=== PATIENT | female | born 1945 | race Caucasian/White ===

== ENCOUNTER 2016-11-01 12:20 | Emergency (ER) | payer MEDICARE ==
[~2016-11-01] VITALS: Ht 157.5 cm; Wt 70.5 kg
[~2016-11-01 12:20] MED LIST: ATEN25TA7 PO; COZ100 PO; OXY40 PO; REG10 PO; SYN.088T PO; VIC5 PO
[2016-11-01 12:25] VITALS: BP 179/67; PULSE 71; RESP 16; O2SAT 99
[2016-11-01] MEDS ORDERED: AMT50T PO (12:30)
--- NOTE | 2016-11-01 13:08 | ED.REPORT ---
HPI-General Illness Date of Service Nov 01, 2016 ED Provider: Nabil Blackburn MD 70 year old female with a history of severe aortic stenosis, pre-diabetic, and HTN presents to the ER accompanied by a female senior sales assistant complaining of a 5- minute episode of nausea and shortness of breath while having coffee following her Lidia class around 11:30-11:45 today. Associated symptoms include dizziness , confusion, and residual "fogginess", headache, and shaking since the episode. Her senior sales assistant reports that patient initially "presented like a TIA". She states that the patient had a blank stare, was "looking through her", and was unable to identify her. This episode lasted about 1 minute. Patient denies chest pain , changes in speech, difficulty swallowing, numbness/tingling, blurred vision, and alcohol consumption today. 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 She is very active, attends multiple exercise classes daily, but denies any history of similar symptoms with exertion. Upon interviewing the patient's daughter, she reports multiple episodes of similar in the past. Nursing Notes Stated Complaint: SHORTNESS OF BREATH/SHAKING Chief Complaint: General Complaint Nursing Notes Reviewed: Yes Allergies: Coded Allergies: No Known Allergies (Verified Allergy, Unknown, 11/01/16) Scheduled Amitriptyline (Amitriptyline) 50 Mg Tab 50 MG PO HS Atenolol-Expunged Drug, Do Not Renew! (Atenolol-Expunged Drug, Do Not Renew!) 25 Mg Tablet 12.5 MG PO DAILY Hydrocod/APAP-Expunged, Do Not Renew! (Vicodin-Expunged Drug, Do Not Renew) 1 Tab Tab 1 TAB PO PRN Levothyroxine-Expunged Drug, Do Not Renew! (Synthroid-Expunged Drug, Do Not Renew!) 88 Mcg Tablet 88 MCG PO DAILYAC 0.088 MG = 88 MCG Losartan-Expunged Drug, Do Not Renew! (Losartan-Expunged Drug, Do Not Renew!) 100 Mg Tablet 50 MG PO DAILY MetoCLOpramide-Expunged Drug, Do Not Renew! (MetoCLOpramide-Expunged Drug, Do Not Renew!) 10 Mg Tablet 10 MG PO ACHS oxyCODONE-Expunged, Do Not Renew! (OxyCONTIN-Expunged, Do Not Renew!) 40 Mg Tab.sr.12h 40 MG PO TID DO NOT CHEW OR CRUSH General Time Seen by MD: 12:48 Chief Complaint Other (Shortness of Breath) Hx Obtained From: Patient Arrived By: Walk-in Sudden in Onset?: Yes Onset Occurred: Just prior to arrival Associated with: Reports: Dizziness, Headache, Nausea, Denies: Chest pain Pertinent Negative: Pt denies other symptoms Context Related History: Reports Diabetes mellitus Similar Sx Previous: Yes Past Medical History Past Medical History Severe aortic stenosis Pre-diabetic Reports: Hypertension Past Surgical History Reports: Hysterectomy Smoking History Former Smoker Social History Other Social History: Good social support Ambulatory Status Independent Review of Systems Full Review of Systems Constitutional: Reports: Weakness - generalized, Denies: Chills, Fever Respiratory: Reports: Shortness of breath Cardiovascular: Denies: Chest pain GI: Reports: Nausea Neurologic: Reports: Change LOC, Confusion, Dizziness, Headache, Shaking, Denies: Focal weakness, Numbness, Slurred speech, Syncope Complete sys rev & neg: except as marked. Physical Exam Vital Signs Vital Signs Date Time Temp Pulse Resp B/P Pulse Ox O2 Delivery O2 Flow Rate FiO2 11/01/16 15:42 70 18 129/67 98 Room Air 11/01/16 12:25 36.4 71 16 179/67 99 Room Air Initial VS: Reviewed Head / Eyes: Atraumatic, Normocephalic Neck: Supple, Non-tender, Full range of motion Abdomen / GI: Soft, Non-tender, No guarding, No rebound, No distention Extremities: Vascular intact, Neuro intact, No swelling, No tenderness Skin: Warm, Dry, No cyanosis Neurologic: Alert, Oriented, Nonfocal General/Constitutional: Awake, Alert, Well developed, Well nourished Respiratory / Chest: Breath sounds NL, No respiratory distress, No rales, No rhonchi, No wheezing Cardiovascular: Heart rate NL, Regular rhythm, Heart sounds NL, Cap refill not delayed, Peripheral circulation NL Neurologic: Oriented X3, Speech NL, No motor deficits, No sensory deficits, CN II - XII intact NIH Stroke Scale Level of Consciousness: Alert and responsive (0) Ask Month & Age: Both questions right (0) Open/Close Eyes/Hand Tree And Shrub Technician: Performs both tasks (0) Horizontal EO Movements: None (0) Visual Meza: No visual loss (0) Facial Palsy: Normal symmetry (0) Right Arm Motor Drift (10s): No drift 10 sec (0) Left Arm Motor Drift (10s): No drift 10 sec (0) Right Leg Motor Drift (5s): No drift 5 sec (0) Left Leg Motor Drift (5s): No drift 5 sec (0) Limb Ataxia FNF/Heel-Cavanaugh: No ataxia (0) Sensation (Arms/Legs/Face): No sensory loss (0) Language Aphasia: No aphasia, normal (0) Dysarthria: No dysarthria, normal (0) Extinction/Inattention: No exctinct/inattent (0) NIHSS Score: 0 Time NIHSS Performed: 13:15 Date NIHSS Performed: Nov 01, 2016 Interpretation & Diagnostics Lab Results Interpretation Result Diagram: 11/01/16 1400 11/01/16 1400 Test 11/01/16 12:30 11/01/16 14:00 Urine Color Straw (YELLOW) Urine Appearance Hazy (CLEAR,HAZY) Urine pH 5.5 (5.0-8.0) Urine Specific Hudson 1.015 (1.003-1.035) Urine Protein Negativemg/dL (NEG,TRACE) Urine Glucose (UA) Negativemg/dL (NEGATIVE) Urine Ketones Negativemg/dL (NEGATIVE) Urine Occult Blood Negative (NEGATIVE) Urine Nitrite Negative (NEGATIVE) Urine Bilirubin Negative (NEGATIVE) Urine Urobilinogen Normalmg/dL (NORMAL) Urine Leukocyte Esterase Negative (NEGATIVE) Urine RBC 0-2/hpf (0-2) Urine WBC 0-5/hpf (0-5) Urine Epithelial Cells Occasional/hpf (NONE-MOD) Urine Crystals None seen (NONE SEEN) Urine Bacteria Few/hpf (NONE-FEW) Urine Hyaline Casts None/lpf (NONE) Urine Granular Casts None seen (NONE SEEN) Urine Waxy Casts None seen (NONE SEEN) Urine Red Blood Cell Casts None seen (NONE SEEN) Urine White Blood Cell Casts None seen (NONE SEEN) Urine Mucus None seen (None Seen) Urine Trichomonas None seen (NONE SEEN) Urine Yeast None (NONE SEEN) Urinalysis Comment None Urine Culture Reflexed Not indicated White Blood Count 7.1th/mm3 (3.8-10.1) Red Blood Count 4.72mil/mm3 (3.90-5.20) Hemoglobin 11.6g/dL (12.0-15.6) Hematocrit 36.3% (35.0-46.0) Mean Corpuscular Volume 76.9fL (81-100) Mean Corpuscular Hemoglobin 24.6pg (27.0-35.0) Mean Corpuscular Hemoglobin Concent 32.0% (32.0-37.0) Red Cell Distribution Width 14.7% (12.3-15.4) Platelet Count 131bil/L (150-400) Neutrophils (%) (Auto) 84.5% (40-74) Lymphocytes (%) (Auto) 9.5% (14-46) Monocytes (%) (Auto) 4.5% (4-12) Eosinophils (%) (Auto) 1.1% (0-5) Basophils (%) (Auto) 0.1% (0-3) Sodium Level 127mEq/L (134-144) Potassium Level 4.6mEq/L (3.5-5.2) Chloride Level 92mEq/L (97-108) Carbon Dioxide Level 21mmol/L (18-29) Blood Urea Nitrogen 22mg/dL (8-27) Creatinine 0.87mg/dL (0.57-1.00) Estimat Glomerular Filtration Rate 92mL/min (>59) Glucose Level 126mg/dL (60-99) Calcium Level 8.9mg/dL (8.5-10.1) Magnesium Level 1.9mg/dL (1.6-2.6) Total Bilirubin 0.3mg/dL (0.0-1.2) Aspartate Amino Transf (AST/SGOT) 25U/L (0-50) Alanine Aminotransferase (ALT/SGPT) 19U/L (0-32) Alkaline Phosphatase 65U/L (25-165) Troponin T < 0.010ug/L (0.0-0.011) Total Protein 6.9g/dL (6.4-8.4) Albumin 4.5g/dL (3.4-5.0) ECG Interpretation ECG Interpretation: Early repolarization, confirmed with cardiology. No STEMI. Time: 13:22 Interpreted by: ED physician Normal ECG Interpretation: Normal sinus rhythm X-Ray Chest Interpretation Chest Xray Interpretation: IMPRESSION: No acute cardiopulmonary disease. Dictated by: Tito Zamora RRA Interpreted: Demi Stringer MD on 11/01/2016 at 14:26 Transcribed by: MARTY on 11/01/2016 at 14:27 View: AP & lat Interpretation / Wet Read by: Interpret - Radiologist CT Head Interpretation IMPRESSION: 1. No acute intracranial disease process. 2. Opacification of the right mastoid air cells. Please correlate with direct physical finding to differentiate serous fluid from an inflammatory process. Dictated by: Deim Stringer MD, PhD on 11/01/2016 at 14:18 Approved by: Demi tSringer MD, PhD on 11/01/2016 at 14:21 Study: Head CT no contrast Interpretation / Wet Read by: Interpret - Radiologist Re-Eval/Medical Decision Med Decision/Clinical Course 70-year-old female history of SVT and near syncopal events presenting with near syncopal event. She was at lunch and started to feel lightheaded and slightly confused. She denies any chest pain. She may be some associated dyspnea. Vital signs are stable on arrival. She is mostly back to her baseline though still feels slightly foggy. Troponins are negative. EKG with early repolarization confirmed with cardiology. CT brain no acute pathology. I recommended admission for near syncopal event which may have been as a result of TIA versus cardiac versus arrhythmia versus other. Patient declines admission and decided to go home. Source of Hx: Old records Time of Eval: 14:59 Re-Evaluation/Progress Note: Patient is now accompanied by her daughter who is at bedside. Discussed lab and radiology results and recommendation for admission. Patient is amenable to the plan. All other questions addressed. Code Status: Full Code Time of Eval: 15:31 Re-Evaluation/Progress Note: Patient has changed her mind and would like to be discharged. Return precautions given. All other questions addressed. Consultation : Referral / Consult Name: Leonard Mancilla MD Consulted With: Cardiology Call Returned at: 13:21 Maintenance Trainer: Will see patient Counseled Regarding: Diagnosis, Lab results, Need for follow-up, When/why to return to ED Discharge & Departure Primary Impression: Near syncope Disposition: Home Discharge Condition All VS Reviewed: Yes Condition: Stable Patient Instructions: Ischemic Stroke (DC), Transient Ischemic Attack (DC) Additional Instructions: Call your primary care provider to arrange a follow-up appointment for tomorrow. Return to the ER if you develop worsening symptoms, weakness/numbness/tingling, confusion, facial droop, chest pain, shortness of breath, or any other concerning symptoms. Referrals: Jeevan Coyne MD (PCP) Natalia Attestation Portions of this note were transcribed by Dima Hammond. I, Dr. Blackburn, personally performed the history, physical exam and medical decision-making; I reviewed and confirmed the accuracy of the information in the transcribed note. Signed by: Natalia Pierre, 11/01/2016 - 15:35 copies to: Jeevan Coyne MD, Ben M MD Nov 01, 2016 13:08 DIMA HAMMOND Nov 01, 2016 13:15
[2016-11-01 13:12] LABS: APPEARANCE,URINE HAZY (CLEAR,HAZY); COLOR,URINE STRAW (YELLOW); OCCULT BLOOD,URINE NEGATIVE (NEGATIVE); PH,URINE 5.5 (5.0-8.0); UROBILINOGEN,URINE NORMAL (NORMAL)
[2016-11-01 14:13] LABS: BASOPHILS % (AUTO) 0.1 % (0-3); EOSINOPHILS % (AUTO) 1.1 % (0-5); MONOCYTES % (AUTO) 4.5 % (4-12); Mean Corpuscular Hemoglobin 24.6 pg (27.0-35.0); Mean Corpuscular Volume 76.9 fL (81-100); NEUTROPHILS % (AUTO) 84.5 % (40-74); Platelet Count 131 bil/L (150-400)
--- NOTE | 2016-11-01 14:23 | DRSVH ---
PROCEDURE: CT BRAIN WITHOUT CONTRAST ([id number]) INDICATIONS: syncope TECHNIQUE: Noncontrast 4.5 mm thick angled axial sections acquired from the foramen magnum to the vertex, with c oronal reformats. COMPARISON: [facility], MR, BRAIN (IAC) W&WO CONTRAST, 12/09/2012, 7:42. FINDINGS: Image quality: Excellent. CSF spaces: Basal cisterns are patent. No extra-axial fluid collections. The ventricles are symmet arthur in size and shape. Brain: No intracranial bleeds or masses. There is cerebral volume loss for age, with resultant vent ricular and sulcal prominence. There are periventricular and deep white matter chronic small vessel ischemic changes. Punctate calcification noted in the right occipital lobe to represent sequela prior granulomatous disease. There is intracranial internal carotid artery atherosclerosis. Skull and face: Calvarium and visualized facial bones appear intact, without suspicious lesions. Sinuses: Visualized sinuses are clear. Right mastoid air cells are opacified. Left mastoid air cells are clear. IMPRESSION: 1. No acute intracranial disease process. 2. Opacification of the right mastoid air cells. Please correlate with direct physical finding to dif ferentiate serous fluid from an inflammatory process. Dictated by: Demi Stringer MD, PhD on 11/01/2016 at 14:18 Approved by: Demi Stringer MD, PhD on 11/01/2016 at 14:21
--- NOTE | 2016-11-01 14:27 | DRSVH ---
PROCEDURE: X-RAY CHEST, TWO VIEWS ([id number]) INDICATIONS: shortness of breath/weakness TECHNIQUE: 2 views of the chest were acquired. COMPARISON: [facility], CHEST 2VW, 11/24/2013, 3:16 PM. FINDINGS: Surgical changes and devices: None. Lungs and pleura: No pleural effusions or pneumothorax. Lungs are clear. Mediastinum: Mediastinal contours are normal. Heart size is normal. Bones and chest wall: No suspicious bony abnormalities. Soft tissues appear unremarkable. IMPRESSION: No acute cardiopulmonary disease. Dictated by: Tito Zamora [facility] Interpreted: Demi Stringer MD on 11/01/2016 at 14:26 Transcribed by: MARTY on 11/01/2016 at 14:27 Approved by: Demi Stringer MD, PhD on 11/01/2016 at 17:02
[2016-11-01 14:39] LABS: TROPONIN T < 0.010 ug/L (0.0-0.011)
[2016-11-01 14:48] LABS: Magnesium 1.9 mg/dL (1.6-2.6)
[2016-11-01 15:42] VITALS: BP 129/67; PULSE 70; RESP 18; O2SAT 98
== END 2016-11-01 15:42 | disposition home or self-care (01) ==
LOC: SED 12:20
DX: R55 Syncope and collapse (principal); R51 Headache; I10 Essential (primary) hypertension; Z87.891 Personal history of nicotine dependence; R73.03 Prediabetes

== ENCOUNTER 2017-01-03 00:16 | Day surgery (SDC) | payer MEDICARE ==
[~2017-01-03] VITALS: Ht 157.5 cm; Wt 69.0 kg
[2017-01-03] VITALS (22 sets, daily range): BP systolic 110–141; BP diastolic 52–66; PULSE 60–69; RESP 12–16; O2SAT 93–100
[~2017-01-03 00:16] MED LIST changes: +AMT50T PO
[2017-01-03] MEDS ORDERED: HYDR-3825 PO (10:12)
[2017-01-03] MEDS ORDERED: CYAN100T PO (10:12)
[2017-01-03] MEDS ORDERED: MTC5T PO (10:12)
[2017-01-03] MEDS ORDERED: MELO-253 PO (10:12)
[2017-01-03] MEDS ORDERED: ATEN25TA PO (10:12)
[2017-01-03] MEDS ORDERED: LOSA100T3 PO (10:12)
[2017-01-03] MEDS ORDERED: ASPI-973 PO (10:12)
[2017-01-03] MEDS ORDERED: SIMV40TA2 PO (10:12)
[2017-01-03] MEDS ORDERED: LEVO88TA4 PO (10:12)
[2017-01-03] MEDS ORDERED: CHOL200025 PO (10:12)
[2017-01-03] MEDS ORDERED: OXYC40TA46 PO (10:12)
[2017-01-03] MEDS ORDERED: 0.9% Sodium Chloride 1,000 ML IV ONE (11:21)
[2017-01-03] MEDS ORDERED: Heparin 1,000 Units/500 mL NS Premix IV ONE (13:22)
[2017-01-03] MEDS ORDERED: Heparin 5,000 Units/500 mL NS Premix IV ONE (13:22)
[2017-01-03] MEDS ORDERED: Heparin 10,000 Unit/1,000 mL NS Premix IV ONE (13:22)
[2017-01-03 13:30] LABS: BASOPHILS % (AUTO) 0.3 % (0-3); EOSINOPHILS % (AUTO) 2.7 % (0-5); MONOCYTES % (AUTO) 7.1 % (4-12); Mean Corpuscular Hemoglobin 24.7 pg (27.0-35.0); Mean Corpuscular Volume 77.4 fL (81-100); NEUTROPHILS % (AUTO) 68.6 % (40-74); Platelet Count 130 bil/L (150-400)
[2017-01-03] MEDS ORDERED: fentaNYL-PF 50 mCg/mL 2 mL Inj ONE (14:58)
--- NOTE | 2017-01-03 15:01 | NUR ---
ENRIQUETA Patient admitted to [facility] bed 3 at 1300 for heart cath. Daughter at bedside. Patient denies pain. HL X 2 placed and labs drawn. ECG complete. Consent obtained by MD and witnessed. History and medication reviewed. Pre-procedure teaching done and questions answered.
--- NOTE | 2017-01-03 20:26 | NUR ---
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 Right groin puncture manual hold. Patient denies pain. Daughter at bedside. No bleeding or hematoma at right groin. Pedal pulses present. Prior to discharge taking PO, ambulatory and void. Instructions reviewed with patient and family, written information given and questions answered.
--- NOTE | 2017-01-03 23:02 | CS94 ---
[address] [address] DIAGNOSTIC CARDIAC CATHETERIZATION PATIENT: MICHAEL DOMÍNGUEZ : 1945 MR#: [id number] ADMIT: 01/03/2017 JOB ID: [id number] SERVICE DATE: 01/03/2017 PROCEDURE PERFORMED: Coronary angiography. INDICATIONS: This 71-year-old woman who has known aortic and dyspnea on exertion. She is being assessed for possible valve surgery. DESCRIPTION OF PROCEDURE: Informed consent was obtained. Patient was brought to cathode washer. Bilateral groins are prepped and draped in usual fashion. Area of right femoral artery was anesthetized with lidocaine. Using micropuncture kit and modified Seldinger technique, access was obtained and a 5-Somali sheath was advanced. A 5-Somali JL-4 catheter was advanced and used to cannulate the left coronary artery. Angiographic views obtained. This catheter was removed and a 5-Somali JR-4 catheter was advanced over a wire and used to cannulate the right coronary. Angiographic views obtained. This catheter was removed and the case was ended. Angiography of the right femoral access site was reviewed prior to achieving hemostasis with manual compression and no complications. FINDINGS: CORONARIES: 1. Left main: This has no evidence of obstructive coronary disease. 2. Circumflex artery: This essentially gives rise to a branching obtuse marginal branch which has no evidence of obstructive disease. 3. Left anterior descending artery: This vessel has minor luminal irregularities. It has significant tortuosity as it approaches the apex but does reach the apex without obstructive lesions. Diagonals are free of obstructive disease. 4. Right coronary artery: This has a somewhat tortuous takeoff. It has evidence of stenosis. There is some damping with deeper engagement of the coronary, however, with the catheter outside the artery there is evidence of a stenosis which estimated in the range of 60% to 70% in the proximal conduit segment with plaque likely extending out to the ostium. The remainder of the right coronary artery has no evidence of obstructive disease. There are no more than minor luminal irregularities appreciated. HEMODYNAMICS: Please see cathode washer report. IMPRESSION: 1. Evidence for approximately 60% to 70% stenosis of the proximal conduit segment of the right coronary artery. This does not appear to be spasm. Further assessment may include possible flow wire assessment. 2. No other obstructive disease appreciated. MTDD
[2017-01-04] MEDS ORDERED: Atropine 1 mg/10 mL (Code) Syringe IVPUSH PRN (07:15)
[2017-01-04] MEDS ORDERED: 0.9% Sodium Chloride 250 ML BOLUS IV PRN (07:15)
[2017-01-04] MEDS ORDERED: 0.9% Sodium Chloride 400 ML (4 HRS) IV ONE (07:15)
== END 2017-01-03 23:59 | disposition home or self-care (01) ==
LOC: SOUO 00:16
PROVIDERS: ATTEND Internal Medicine
DX: Z01.810 Encounter for preprocedural cardiovascular examination (principal); I35.0 Nonrheumatic aortic (valve) stenosis; I25.10 Atherosclerotic heart disease of native coronary artery without angina pectoris; I47.1 Supraventricular tachycardia; E11.9 Type 2 diabetes mellitus without complications; E78.2 Mixed hyperlipidemia; I10 Essential (primary) hypertension; G47.30 Sleep apnea, unspecified; E03.9 Hypothyroidism, unspecified; Z79.82 Long term (current) use of aspirin
CPT/HCPCS: 36415; 80048; 85025; 93005; 93454; 99152; 99153; C1769; J1200; J1644; J2060; J2250; J3010; J7030; Q9967